=== PATIENT | male | born 1935 | race Two or more races ===

== ENCOUNTER 2016-08-23 18:28 | Observation (INO) | payer MEDICARE, OTHER ==
[~2016-08-23] VITALS: Ht 175.3 cm; Wt 76.2 kg
--- NOTE | ~2016-08-23 | HP ---
PAT[facility]'S [facility] AGE[facility] 81 Y [address] ROOM: [place] [id number] LOCATION: [facility] ADMIT DATE: 08/23/2016 History & Physical DISCHARGE DATE: FAMILY PHYSICIAN: Alexandr Powell MD ATTENDING PHYSICIAN: Maik Patel DATE OF SERVICE: CHIEF COMPLAINT: Chest pain. HISTORY OF PRESENT ILLNESS: The patient is an 81-year-old male with past medical history further detailed below, most significant for history of coronary artery disease, status post stents and a pacemaker approximately 4 years ago. The patient has been experiencing intermittent weakness and imbalance for the last week. Today, while mowing the lawn, he developed substernal left-sided chest discomfort, which he rated 8/10 at the max associated with some mild dyspnea. The patient went inside and got some rest and the chest pain subsided, but did not totally resolve. He arrived to the emergency room where he was found to have blood pressure of 180/90, and was given nitroglycerin with resolution of his symptoms. He also had a positive D-dimer, but CT of his chest with contrast was unremarkable. The patient is not sure if he has had similar symptoms in the past, but he does believe that his prior stents were placed because he was experiencing chest pain. He denies any nausea, vomiting, diarrhea, diaphoresis, or syncope. REVIEW OF SYSTEMS: All systems have been reviewed and are negative aside from pertinent positives mentioned above. PAST MEDICAL HISTORY: 1. Coronary artery disease, status post stenting. 2. Pacemaker. 3. History of Coumadin therapy, though not on Coumadin now and the patient nor his family can tell me what he was on Coumadin for. 4. Benign prostatic hyperplasia. 5. Hypercholesterolemia. CURRENT MEDICATIONS: 1. Metoprolol 25. PATIENT'S NAME: [facility] AGE: 81 Y [address] ROOM: [place] [address] LOCATION: [facility] ADMIT DATE: 08/23/2016 History & Physical DISCHARGE DATE: FAMILY PHYSICIAN: Alexandr Powell MD ATTENDING PHYSICIAN: Maik Patel 2. Aspirin 81. 3. Pravachol 40. FAMILY HISTORY: Reviewed and is noncontributory due to the patient's advanced age. SOCIAL HISTORY: Negative for any history of ongoing toxic habits. PHYSICAL EXAMINATION: VITAL SIGNS: At this point, his blood pressure is 132/60, heart rate is in the 60s, saturating 96% on room air, afebrile, respirations are 14. GENERAL: Appears as a well-developed, well-nourished, elderly male of younger age than stated. NEUROLOGICAL: Nonfocal. HEENT: Eye exam shows pupils are equal and reactive to light. LYMPHATIC: Shows no cervical lymphadenopathy. ENDOCRINE: Shows no thyromegaly. LUNGS: Clear to auscultation. HEART: Heart rate is regular with no appreciable murmurs, gallops, or rubs. ABDOMEN: Soft, nontender, nondistended. : No costovertebral angle tenderness. VASCULAR: 2+ pedal pulses. MUSCULOSKELETAL: No muscle or joint abnormalities. SKIN: Warm and dry. PSYCHIATRIC: Reveals appropriate mood, cognition, and affect. EMERGENCY DEPARTMENT COURSE: Review of studies from the ER is significant for an EKG, which shows a normal sinus rhythm at 64 beats per minute with left axis deviation. LABORATORY DATA: Review of studies shows an unremarkable BMP, unremarkable CBC. Two sets of negative cardiac enzymes and a D-dimer is positive at 0.93. Preliminary report about the PE scan is negative. ASSESSMENT AND PLAN: This is an 81-year-old male, who will be admitted with: 1. Anginal chest pain. Given the fact that the patient has had a stress test approximately 5 months ago, we will request Cardiology consultation to further diagnose his chest pain. We will monitor the patient on telemetry. We will obtain one more set of cardiac enzymes in the morning. We will provide nitroglycerin as needed for symptomatic control. We will monitor his blood pressure and provide BP control. 2. Elevated blood pressure. At this point is normalized with nitroglycerin PATIENT'S NAME: ALEKSANDER MARCIAL [facility] AGE: 81 Y [address] ROOM: [place] [id number] LOCATION: [facility] ADMIT DATE: 08/23/2016 History & Physical DISCHARGE DATE: FAMILY PHYSICIAN: Alexandr Powell MD ATTENDING PHYSICIAN: Maik Patel and we will make nitroglycerin available as needed. 3. Benign prostatic hyperplasia noted. 4. Deep vein thrombosis prophylaxis will be instituted if the patient stays in the hospital for more than 24 hours. Additional management will depend on clinical course. Time dedicated to this patient encounter is 35 minutes. MD PRESLEY PAYNE/matilda /[id number] D: [id number] T: [id number] HISTORY & PHYSICAL
--- NOTE | ~2016-08-23 | ER ---
[facility] 81 Y [address] ROOM: [place] [address] LOCATION: [facility] ADMIT DATE: 08/23/2016 ER/Outpatient Report DISCHARGE DATE: 08/24/2016 FAMILY PHYSICIAN: Alexandr Powell MD ATTENDING PHYSICIAN: Kris Allen V TIME OF ARRIVAL: 1828 hours. TIME OF EVALUATION: 1832 hours. CHIEF COMPLAINT: Chest pain. HISTORY OF PRESENT ILLNESS: The patient is an 81-year-old male who presents to the emergency department today with a chief complaint of chest pain. He also reports he is having shortness of breath. He feels like he is lightheaded and going to pass out. He reported he has been feeling weak over the past couple of weeks; however, he was out mowing the lawn today when he developed chest pressure. He reports he gets better with rest. He went to take a nap on the couch and woke up and he was sweaty. He reports his pain is currently 3/10 in severity. Does report some nausea, no vomiting. No fevers or chills. No diarrhea or constipation. No history of DVT or PE. No ripping or tearing sensation. No radiation of the back. The patient does have a history of stents in the past. PAST MEDICAL HISTORY: Coronary artery disease, status post stenting, hypertension, benign prostatic hyperplasia, diverticulosis, diverticulitis, colon polyps, bradycardia, non- insulin-dependent diabetes mellitus type 2, dyslipidemia, peptic ulcer disease, chronic low back pain, lumbar spinal stenosis, and recurrent prostatitis. PAST SURGICAL HISTORY: ORIF with a finger fracture, pacemaker insertion, colonoscopy, heart cath with PTCA and stenting, tonsillectomy and adenoidectomy, appendectomy, and bilateral shoulder arthroscopy. SOCIAL HISTORY: The patient denies any tobacco, alcohol, or illicit drug use. ALLERGIES: DEMEROL, MORPHINE, SULFA, AND STATIN. [facility]: [facility] 81 Y [address] ROOM: [place] [address] LOCATION: [facility] ADMIT DATE: 08/23/2016 ER/Outpatient Report DISCHARGE DATE: 08/24/2016 FAMILY PHYSICIAN: Alexandr Powell MD ATTENDING PHYSICIAN: Kris Allen V MEDICATIONS: Please see list. CANDY POLISHER: Dr. Tillman. REVIEW OF SYSTEMS: All systems are reviewed by myself are negative with the exception of those discussed in HPI and past medical history. PHYSICAL EXAMINATION: VITAL SIGNS: Weight 79.9 kg. Blood pressure 183/90, pulse 64, respiratory rate 16, temperature 97.4, and oxygen saturation 94% on room air. GENERAL: The patient is an 81-year-old male, appears stated age, in no acute distress at this time. HEENT: Normocephalic, atraumatic. Pupils are equal, round, and reactive to light. NECK: Supple. There is no nuchal rigidity. No JVD. CARDIOVASCULAR: Regular rate and rhythm. No murmurs, rubs, or gallops. LUNGS: Clear to auscultation bilaterally. No wheezes, rales, or rhonchi. ABDOMEN: Soft, nontender, and nondistended. No rebound, rigidity, or guarding. MUSCULOSKELETAL: The patient moves all 4 extremities. SKIN: Warm and dry. LABS AND X-RAYS: EKG is obtained, is interpreted by myself at 6:35, shows sinus rhythm with a rate of 64, left axis deviation, normal interval. No ST-elevation, ST- depression, or T-wave inversions. CBC is normal. D-dimer 0.93. Chest x-ray shows no significant change. Coags are normal. Pro-BNP is less than 30. CMP is unremarkable. LFTs are normal. Magnesium is normal. CK is normal. CK-MB 5.7. Troponin is normal. Repeat 2-hour cardiac enzymes are normal. CT scan of the chest, PE study is obtained. It shows no evidence of pulmonary embolism. I have discussed this with the radiologist. IMPRESSION: 1. Unstable angina. 2. Near syncope. 3. Zym-fsbmori-oxeazkuoh diabetes mellitus. 4. History of coronary artery disease with percutaneous transluminal coronary angioplasty and stenting. 5. Initial visit. EMERGENCY DEPARTMENT COURSE: The patient brought back to the examination room. Seen and evaluated by PATIENT'S NAME: ALEKSANDER [facility]CIAL [facility] AGE: 81 Y [address] ROOM: [place] [address] LOCATION: [facility] ADMIT DATE: 08/23/2016 ER/Outpatient Report DISCHARGE DATE: 08/24/2016 FAMILY PHYSICIAN: Alexandr Powell MD ATTENDING PHYSICIAN: Kris Allen V myself. IV is established. Laboratory analysis and imaging are obtained as described above. The patient is given 4 baby aspirin. The patient is given one nitroglycerin with improvement of the patient's symptoms. The patient is also given 1 g of Tylenol p.o. I have discussed the results with the patient, his , and daughter who is at bedside. I have recommended admission to the hospital for further evaluation, treatment, and management as the patient does have classic ACS type symptoms with exertion with history of coronary artery disease and stenting. The patient is agreeable. I have discussed the case with Dr. Allen, who is on-call for the Hospitalist Service, he has seen and evaluated the patient down here in the emergency department, please see his dictation. He does agree to accept the patient. DISPOSITION: The patient is admitted under the care of Hospitalist Service of Dr. Allen in stable condition. DO MARIA FERNANDA FLORES/modl /[id number] d: 08/25/16 0106 t: 08/25/16 0221, OUTPATIENT REPORT
[~2016-08-23 18:28] MED LIST: ASPIRIN LO-DOSE81 MG PO; CIPRO500 MG PO; COLACE100 MG PO; FLAGYL500 MG PO; FLOMAX0.4 MG PO; FLORASTOR250 MG PO; THERA-VITE W/ B1 TAB PO; TYLENOL EXTRA500 MG PO; ULTRAM50 MG PO
[2016-08-23 18:53] LABS: HEMATOCRIT 47.4 % (33.0-50.0); MCH 28.4 pg (27.0-34.0); MCHC 33.8 gm/dL (32.0-36.5); MCV 84.2 fl (83.0-98.0); MPV 10.4 fl (9.4-12.4); PLATELET COUNT 193 K/uL (150-450); RBC 5.63 M/uL (3.50-5.50); RDW-CV 13.8 % (11.9-14.6); WBC 9.8 K/uL (4.0-11.0)
[2016-08-23 19:02] LABS: INR - (THERAPEUTIC) 1.01 (0.92-1.07); PROTIME 10.6 SECONDS (9.8-11.4); PTT 27 SECONDS (25-32)
[2016-08-23 19:12] LABS: ALBUMIN 3.6 gm/dL (3.5-5.0); ALK PHOS 69 IU/L (33-138); ALT 29 IU/L (12-78); ANION GAP 13.5 (10.0-19.0); AST 18 IU/L (10-40); BLOOD UREA NITROGEN 15 mg/dL (6-24); CALCIUM 8.5 mg/dL (8.5-10.5); CHLORIDE 111 mMol/L (96-110); CO2 23 mMol/L (22-32); CPK 240 IU/L (35-332); ESTIMATED GFR (MDRD EQUATION) > 60; MAGNESIUM 2.2 mg/dL (1.8-2.6); POTASSIUM 4.5 mMol/L (3.7-5.1); SODIUM 143 mMol/L (135-145); TOTAL BILIRUBIN 0.6 mg/dL (0.0-1.5); TOTAL PROTEIN 6.8 g/dL (6.0-8.4)
[2016-08-23 19:27] LABS: ABSOLUTE NEUTROPHIL CT (ANC) 4.9 K/uL (1.4-9.0); LYMPHOCYTE # 4.7 K/uL (0.8-4.0); LYMPHOCYTE % 48 %; MONOCYTE # 0.2 K/uL (0.0-1.0); SEGMENTED NEUTROPHIL # 4.9 K/uL (1.4-9.0); SEGMENTED NEUTROPHIL % 50 %
[2016-08-23 21:10] LABS: CPK 204 IU/L (35-332)
[2016-08-23] MEDS ORDERED: LOPRESSOR25 MG PO ×2 (23:45→23:46)
[2016-08-23] MEDS ORDERED: PRAVACHOL40 MG PO (23:46)
[2016-08-23] MEDS ORDERED: NITROSTAT0.4 MG SL (23:47)
[2016-08-24 06:11] LABS: CPK 156 IU/L (35-332)
== END 2016-08-24 17:08 | disposition disaster alternative care site (69) ==
LOC: GMED 18:28 → GPCU 22:49
PROVIDERS: Emergency Medicine; ADMIT Internal Medicine
DX: R07.89 Other chest pain (principal); I25.110 Atherosclerotic heart disease of native coronary artery with unstable angina pectoris; I49.5 Sick sinus syndrome; I10 Essential (primary) hypertension; N40.0 Benign prostatic hyperplasia without lower urinary tract symptoms; E78.00 Pure hypercholesterolemia, unspecified; E11.9 Type 2 diabetes mellitus without complications; M54.5 Low back pain; M48.06 Spinal stenosis, lumbar region; Z87.11 Personal history of peptic ulcer disease; Z95.0 Presence of cardiac pacemaker; Z98.890 Other specified postprocedural states; Z90.49 Acquired absence of other specified parts of digestive tract; Z88.2 Allergy status to sulfonamides; Z88.8 Allergy status to other drugs, medicaments and biological substances; Z79.899 Other long term (current) drug therapy
CPT/HCPCS: G0378; Q9967